=== PATIENT | male | born 1975 | race Caucasian/White ===

== ENCOUNTER 2023-11-04 07:41 | Emergency (ER) | payer MEDICAID ==
[~2023-11-04] VITALS: Ht 182.9 cm; Wt 90.0 kg
[2023-11-04] MEDS: ketorolac trometh 30MG/ML vial 30 MG/ML VIAL IV ONE (10:10)
[2023-11-04] MEDS: dexamethasone sod phosphate 10mg/ml inj IV STA (10:12)
[2023-11-04 10:45] VITALS: TEMP 98.3
[2023-11-04] MEDS ORDERED: NAPR-56 PO (12:39)
[2023-11-04 12:48] VITALS: BP 144/76; PULSE 68; RESP 14; O2SAT 97
== END 2023-11-04 13:07 | disposition home or self-care (01) ==
LOC: ER 07:42
DX: G89.29 Other chronic pain (principal); M54.50 Low back pain, unspecified; M54.31 Sciatica, right side; F12.90 Cannabis use, unspecified, uncomplicated; Z79.1 Long term (current) use of non-steroidal anti-inflammatories (NSAID); Z98.890 Other specified postprocedural states
CPT/HCPCS: 72148; 96374; 96375; 99285; J1100; J1885